=== PATIENT | female | born 1960 | race Asian ===

== ENCOUNTER 2025-04-11 06:18 | Day surgery (SDC) | payer OTHER, SELFPAY | END 2025-04-11 11:49 | disposition home or self-care (01) | LOC: GI 06:18 | PROVIDERS: ATTENDING PHYSICIAN Internal Medicine Gastroenterology | DX: K29.40 Chronic atrophic gastritis without bleeding (principal); K31.7 Polyp of stomach and duodenum; K31.A19 Gastric intestinal metaplasia without dysplasia, unspecified site; K31.89 Other diseases of stomach and duodenum; K31.A11 Gastric intestinal metaplasia without dysplasia, involving the antrum; K31.A12 Gastric intestinal metaplasia without dysplasia, involving the body (corpus) | CPT/HCPCS: 43239; 88305; 88342 ==